=== PATIENT | female | born 1995 | race Caucasian/White ===

== ENCOUNTER 2021-05-19 08:44 | Outpatient (CLI) | payer OTHER ==
[2021-05-19 16:45] LABS: SARS-CoV-2 PCR by NAA Not Detected (NotDetected)
== END 2021-05-19 08:45 | disposition home or self-care (01) ==
LOC: CSHLAB 08:44
PROVIDERS: ATTEND Advanced Practice Midwife
DX: Z20.822 Contact with and (suspected) exposure to COVID-19 (principal)
CPT/HCPCS: U0003; U0005

== ENCOUNTER 2021-05-20 10:02 | Inpatient (IN) | payer OTHER ==
[2021-05-20] MEDS ORDERED: hydrALAZINE 20 MG/ML VIAL SLOW IVP PRN ×2 (10:42→15:39)
[2021-05-20] MEDS ORDERED: Famotidine/PF 20 mg/2ml Vial SLOW IVP PRN (10:42)
[2021-05-20] MEDS ORDERED: Ondansetron PF 4 MG/2 ML Vial IVP PRN ×2 (10:42→15:39)
[2021-05-20] MEDS ORDERED: Bicitra 30 ML UDCUP PO PRN (10:42)
[2021-05-20] MEDS ORDERED: Promethazine HCl 25 MG/ML VIAL IM PRN (10:42)
[2021-05-20] MEDS ORDERED: CEFAZOLIN 2 GM in Premix Bag 1 BAG IVPB SCH (10:45)
[2021-05-20 10:59] LABS: Mean Corpuscular HGB CONC 33.3 g/dL (32.0-36.0); Mean Corpuscular Hemoglobin 27.4 pg (27.0-33.0); Mean Corpuscular Volume 82.1 fl (81.6-98.3); Mean Platelet Volume 10.4 fl (7.4-10.4); Platelet Count 278 10x3/uL (150-450); RBC Distribution Width 13.1 % (11.5-14.5); Red Blood Cell (RBC) Count 4.75 10x6/uL (3.90-5.03); White Blood Cell (WBC) Count 9.4 10x3/uL (3.5-10.5)
[2021-05-20] MEDS: Lactated Ringer's 1,000 ML IV SCH ×2 (11:00→12:06)
[2021-05-20 11:02] VITALS: BMI 43.5
[2021-05-20 11:39] LABS: Hep B Surf Ag Non-Reactive S/CO (NonReactive)
[2021-05-20 11:41] LABS: Syphilis Antibody Nonreactive (Nonreactive); Syphilis Antibody Index 0.07 S/CO (<1.00 Non-Reactive)
[2021-05-20 11:54] LABS: HBSAg Index 0.23 S/CO (0-0.99)
[2021-05-20] MEDS ORDERED: Dexamethasone 4 mg/ml Vial ONE (12:20)
[2021-05-20] MEDS ORDERED: Ketorolac Tromethamine 30 MG/ML VIAL ONE (12:20)
[2021-05-20] MEDS ORDERED: Oxytocin 10 UNITS/ML VIAL ONE (12:20)
[2021-05-20] MEDS ORDERED: Ondansetron PF 4 MG/2 ML Vial ONE (12:20)
[2021-05-20] MEDS ORDERED: Morphine PF 10 MG/10 ML VIAL ONE (12:25)
[2021-05-20] MEDS ORDERED: Phenylephrine 40 MG/NS 250 ML 250 ML ONE (12:31)
[2021-05-20] MEDS ORDERED: NS w/ Oxytocin 30 units 500 ML ONE (15:05)
[2021-05-20] MEDS ORDERED: Boostrix 0.5 ML (Tdap) VIAL IM ONE (15:39)
[2021-05-20] MEDS ORDERED: Lanolin Ointment 7 GM TUBE TOP PRN (15:39)
[2021-05-20] MEDS ORDERED: Methylergonovine 0.2 MG/ML VIAL IM PRN (15:39)
[2021-05-20] MEDS ORDERED: HYDROcodone/Acetaminophen 5/325 mg Tablet PO PRN ×2 (15:39)
[2021-05-20] MEDS ORDERED: Misoprostol 200 MCG TAB PR PRN (15:39)
[2021-05-20] MEDS ORDERED: Methylergonovine 0.2 MG TAB PO PRN (15:39)
[2021-05-20] MEDS ORDERED: NS w/ Oxytocin 30 units 500 ML IV SCH (15:39)
[2021-05-20] MEDS ORDERED: Bisacodyl 10 MG SUPP PR PRN (15:39)
[2021-05-20] MEDS: Ferrous Sulfate 325 MG TAB PO SCH (21:14)
[2021-05-20] MEDS: Ibuprofen 800 MG TAB PO SCH (21:16)
[2021-05-21 05:17] LABS: Hemoglobin 11.5 g/dL (12.0-15.5); Mean Corpuscular HGB CONC 32.7 g/dL (32.0-36.0); Mean Corpuscular Hemoglobin 27.5 pg (27.0-33.0); Mean Corpuscular Volume 84.2 fl (81.6-98.3); Mean Platelet Volume 10.3 fl (7.4-10.4); Platelet Count 260 10x3/uL (150-450); RBC Distribution Width 12.9 % (11.5-14.5); Red Blood Cell (RBC) Count 4.18 10x6/uL (3.90-5.03); White Blood Cell (WBC) Count 13.1 10x3/uL (3.5-10.5)
[2021-05-21] MEDS: Ibuprofen 800 MG TAB PO SCH ×3 (05:36→21:53)
[2021-05-21] MEDS: Simethicone Chewable 80 MG TAB PO PRN ×2 (05:37→21:53)
[2021-05-21] MEDS: Ferrous Sulfate 325 MG TAB PO SCH ×2 (07:39→20:28)
[2021-05-21] MEDS: Prenatal Vitamin 1 TAB PO SCH (08:23)
[2021-05-22] MEDS: Ibuprofen 800 MG TAB PO SCH (05:13)
[2021-05-22] MEDS: Simethicone Chewable 80 MG TAB PO PRN (05:13)
[2021-05-22 08:21] VITALS: TEMP 98.4
[2021-05-22] MEDS: Ferrous Sulfate 325 MG TAB PO SCH (08:33)
[2021-05-22] MEDS: Prenatal Vitamin 1 TAB PO SCH (08:33)
[2021-05-22 11:35] VITALS: BP 117/59
== END 2021-05-22 12:30 | disposition home or self-care (01) | DRG 788 ==
LOC: CSHLD 10:02 → CSHPP 15:30
PROVIDERS: ADMIT Obstetrics & Gynecology; ATTEND Obstetrics & Gynecology
PROC: 10D00Z1 Extraction of Products of Conception, Low, Open Approach (ICD-10-PCS; principal; 2021-05-20)
DX: O34.211 Maternal care for low transverse scar from previous cesarean delivery (principal); Z3A.39 39 weeks gestation of pregnancy; Z37.0 Single live birth; O99.214 Obesity complicating childbirth
CPT/HCPCS: 36415; 85027; 86780; 86850; 86900; 86901; 87340; J0690; J1100; J1885; J2274; J2405; J2590; J7120; S0028; U0003; U0005

== ENCOUNTER 2021-12-04 10:05 | Outpatient (CLI) | payer OTHER | END 2021-12-04 10:06 | disposition home or self-care (01) | LOC: CSHLAB 10:05 | PROVIDERS: ATTEND Obstetrics & Gynecology | DX: Z01.812 Encounter for preprocedural laboratory examination (principal); Z20.822 Contact with and (suspected) exposure to COVID-19; Z40.03 Encounter for prophylactic removal of fallopian tube(s); Z80.3 Family history of malignant neoplasm of breast; Z53.9 Procedure and treatment not carried out, unspecified reason | CPT/HCPCS: 84703; 85027; 86850; 86900; 86901; 87811 ==

== ENCOUNTER 2021-12-09 08:49 | Day surgery (SDC) | payer OTHER ==
[2021-12-03 11:45] VITALS: BMI 46.5
[2021-12-04 10:56] LABS: Hemoglobin 14.8 g/dL (12.0-15.5); Mean Corpuscular HGB CONC 34.2 g/dL (32.0-36.0); Mean Corpuscular Hemoglobin 28.6 pg (27.0-33.0); Mean Corpuscular Volume 83.8 fl (81.6-98.3); Mean Platelet Volume 9.5 fl (7.4-10.4); Platelet Count 300 10x3/uL (150-450); RBC Distribution Width 12.2 % (11.5-14.5); Red Blood Cell (RBC) Count 5.17 10x6/uL (3.90-5.03); White Blood Cell (WBC) Count 7.9 10x3/uL (3.5-10.5)
[2021-12-04 11:14] LABS: BHCG - Serum Negative (NEGATIVE); Pregs Control Background? CLEAR/WHITE (CLR/WHITE); Pregs Control Bar Appear? YES (CONTROL BAR)
[2021-12-09] MEDS ORDERED: Lidocaine 1% MPF 2 ML VIAL ONE (09:04)
[2021-12-09] MEDS ORDERED: Gabapentin 300 MG CAP ONE (09:05)
[2021-12-09] MEDS ORDERED: Famotidine/PF 20 mg/2ml Vial ONE (09:06)
[2021-12-09] MEDS ORDERED: CeleCOXIB 100 MG CAP ONE (09:07)
[2021-12-09] MEDS ORDERED: Bupivacaine PF 0.5% 30 ML VIAL ONE (10:21)
[2021-12-09] MEDS ORDERED: EPINEPHrine 1 MG/ML AMP ONE (10:21)
[2021-12-09] MEDS ORDERED: Midazolam HCl 2 mg/2 ml Vial ONE (10:27)
[2021-12-09] MEDS ORDERED: CEFAZOLIN 2 GM VIAL ONE (10:44)
[2021-12-09] MEDS ORDERED: Lidocaine 1% PF 5 ML VIAL ONE (10:51)
[2021-12-09] MEDS ORDERED: Ondansetron PF 4 MG/2 ML Vial ONE (10:51)
[2021-12-09] MEDS ORDERED: Rocuronium Bromide 10 MG/ML (10ML VIAL) ONE (10:51)
[2021-12-09] MEDS ORDERED: Dexamethasone 4 mg/ml Vial ONE (10:52)
[2021-12-09] MEDS ORDERED: PROPOFOL 20 ML ONE (10:52)
[2021-12-09] MEDS ORDERED: Fentanyl 100 MCG/2 ML VIAL ONE ×2 (10:53→11:56)
[2021-12-09] MEDS ORDERED: Glycopyrrolate 0.2 MG/ML 5 ML SYRINGE ONE (11:18)
[2021-12-09] MEDS ORDERED: PHENYLEPHRINE-NS 100 MCG/ML 10 ML SYRINGE ONE (11:21)
[2021-12-09] MEDS ORDERED: Ketorolac Tromethamine 30 MG/ML VIAL ONE (11:26)
[2021-12-09] MEDS ORDERED: Meperidine HCl/PF 25 MG/ML VIAL ONE (11:43)
[2021-12-09] MEDS ORDERED: Ferric Subsulfate (ASTRINGYN) 8 GM VIAL ONE (11:45)
== END 2021-12-09 14:35 | disposition home or self-care (01) ==
LOC: CSHSDC 08:49
PROVIDERS: ATTEND Obstetrics & Gynecology
PROC: 0UT74ZZ Resection of Bilateral Fallopian Tubes, Percutaneous Endoscopic Approach (ICD-10-PCS; principal; 2021-12-09)
DX: Z40.03 Encounter for prophylactic removal of fallopian tube(s) (principal); Z80.3 Family history of malignant neoplasm of breast; Z15.02 Genetic susceptibility to malignant neoplasm of ovary; Z20.822 Contact with and (suspected) exposure to COVID-19
CPT/HCPCS: 84703; 85027; 86850; 86900; 86901; 87811; 88302; J0171; J0690; J1100; J1885; J2175; J2250; J2405; J2704; J3010; S0020; S0028